=== PATIENT | female | born 1970 | race Caucasian/White ===

== ENCOUNTER 2017-05-31 21:42 | Emergency (ER) | END 2017-06-01 00:18 | disposition home or self-care (01) ==

== ENCOUNTER 2017-12-22 19:29 | Emergency (ER) | END 2017-12-22 22:00 | disposition home or self-care (01) ==

== ENCOUNTER 2018-05-16 19:11 | Emergency (ER) | END 2018-05-16 23:10 | disposition left against medical advice (07) ==

== ENCOUNTER 2018-09-29 19:40 | Emergency (ER) | payer OTHER ==
[~2018-09-29] VITALS: Ht 157.5 cm; Wt 69.8 kg
[~2018-09-29 19:40] MED LIST: ACET500C5 PO; BUTA1CAP39 PO; CLIN300C10 PO; HYDR-3498 PO; HYDR-4011 PO; MECL-77 PO; NAPR-985 PO; SIMV10TA PO
[2018-09-29 19:49] VITALS: Ht 157.5 cm; Wt 69.8 kg
[2018-09-29] MEDS ORDERED: KETOROLAC 15 MG INJ IV STA (21:35)
[2018-09-29] MEDS ORDERED: SOD CHLORIDE 0.9% 1,000 ML IV STA (21:35)
[2018-09-29] MEDS ORDERED: ONDANSETRON 4 MG INJ IV STA (21:35)
--- NOTE | 2018-09-29 21:40 | ERD ---
ER Documentation Chief Complaint Chief Complaint C/O POSTERIOR GARZA, PALPITATIONS AND NAUSEA SINCE 1700 HPI 48-year-old woman complaining of posterior scalp pain and burning with palpitations beginning a few hours prior to arrival. She has sharp nonexertional nonradiating chest pain and complains of stress and anxiety as well, symptoms began while at a alliance party in her house. She states she has had similar episodes in the past usually associated with anxiety. She denies depression, no suicidal homicidal ideation, no blurry vision, no slurred speech, no weakness in her arms or legs ROS All systems reviewed and are negative except as per history of present illness. Medications Home Meds Active Scripts Clindamycin Hcl* (Clindamycin Hcl*) 300 Mg Capsule, 300 MG PO TID for 10 Days, CAP Prov:EMERSON SULLIVAN NP 12/22/17 Hydrocodone/Acetaminophen (Wittman 5-325 Tablet) 1 Each Tablet, 1 TAB PO Q6H PRN for SEVERE PAIN LEVEL 7-10, #10 TAB Prov:EMERSON SULLIVAN NP 12/22/17 Acetaminophen* (Tylophen*) 500 Mg Capsule, 1 CAP PO Q6H PRN for PAIN AND OR ELEVATED TEMP, #20 CAP Prov:CAMERON MITCHELL PA-C 05/31/17 Clindamycin Hcl* (Clindamycin Hcl*) 300 Mg Capsule, 300 MG PO TID for 10 Days, CAP Prov:EMERSON SULLIVAN NP 04/28/16 Meclizine Hcl* (Meclizine Hcl*) 25 Mg Tablet, 25 MG PO Q8H PRN for DIZZINESS, #20 TAB Prov:EMERSON SULLIVAN NP 02/03/16 Hsewgmbnabxuo-Ctcrtrxlzf-Scggqhez-Codeine* (Fioricet w/ Codeine*) [id number] Capsule, 1 CAP PO Q6H PRN for PAIN LEVEL 1-5, #20 CAP Prov:EMERSON SULLIVAN NP 02/03/16 Naproxen* (Naprosyn*) 500 Mg Tablet, 500 MG PO BID PRN for PAIN AND/OR INFLAMMATION, #30 TAB Prov:KELLY PEDERSON PA-C 11/19/15 Hydrocodone Bit-Acetaminophen* (Wittman*) 5-325 Mg Tab, 1 TAB PO Q6 PRN for PAIN, #7 TAB Prov:KELLY PEDERSON PA-C 11/19/15 Clindamycin Hcl* (Clindamycin Hcl*) 300 Mg Capsule, 450 MG PO BID for 10 Days, CAP Prov:KELLY PEDERSON PA-C 11/19/15 Reported Medications Simvastatin* (Zocor*) 10 Mg Tablet, 1 TAB PO DAILY 02/21/12 Allergies Allergies: Coded Allergies: Penicillins (Verified Allergy, Unknown, 05/31/17) aspirin (Verified Allergy, Unknown, 05/31/17) PMhx/Soc Anxiety, hypertension History of Surgery: Yes (c/section x2, cholecystectomy, nasal polyps) Anesthesia Reaction: No Hx Neurological Disorder: No Hx Respiratory Disorders: No Hx Cardiac Disorders: Yes (dyslipidemia) Hx Psychiatric Problems: No Hx Miscellaneous Medical Probl: Yes (anxiety) Hx Alcohol Use: No Hx Substance Use: No Hx Tobacco Use: No Smoking Status: Never smoker FmHx Family History: No diabetes Physical Exam Vitals Vital Signs Date Temp Pulse Resp B/P (MAP) Pulse Ox O2 O2 Flow FiO2 Time Delivery Rate 09/29/18 98.7 67 19 130/83 100 Room Air 23:16 (99) 09/29/18 98.7 93 19 182/90 99 19:49 (120) Physical Exam GENERAL: Well-developed, well-nourished, hydrated, appears anxious, afebrile NEURO: Alert and oriented 3, cranial nerves II through XII intact bilaterally, pupils equal round reactive to light, no focal deficits or facial asymmetry, sensation intact distally Strength 5/5 in upper and lower extremities bi laterally CARDIAC: Regular rate and rhythm, no murmurs rubs or gallops LUNGS: Clear bilaterally no wheezing crackles or stridor ABDOMEN: Soft nontender, no guarding, no rigidity, no rebound, no psoas sign no obturator sign. Normoactive bowel sounds EXTREMITIES: No clubbing cyanosis or edema, calves are bilaterally symmetrical, no Homans sign, no popliteal cord sign. Distal pulses equal and bilateral PSYCH: Anxious Result Diagram: 09/29/18220309/29/182203 Results 24 hrs Laboratory Tests Test 09/29/18 22:04 5/2/19 23:00 White Blood Count 8.5 10^3/ul Red Blood Count 4.73 10^6/ul Hemoglobin 14.0 g/dl Hematocrit 42.4 % Mean Corpuscular Volume 89.6 fl Mean Corpuscular Hemoglobin 29.6 pg Mean Corpuscular Hemoglobin Concent 33.0 g/dl Red Cell Distribution Width 11.5 % Platelet Count 282 10^3/UL Mean Platelet Volume 9.1 fl Immature Granulocytes % 0.200 % Neutrophils % 75.5 % Lymphocytes % 18.2 % Monocytes % 5.3 % Eosinophils % 0.2 % Basophils % 0.6 % Nucleated Red Blood Cells % 0.0 /100WBC Immature Granulocytes # 0.020 10^3/ul Neutrophils # 6.4 10^3/ul Lymphocytes # 1.5 10^3/ul Monocytes # 0.5 10^3/ul Eosinophils # 0.0 10^3/ul Basophils # 0.1 10^3/ul Nucleated Red Blood Cells # 0.0 10^3/ul Sodium Level 140 mmol/L Potassium Level 4.0 mmol/L Chloride Level 108 mmol/L Carbon Dioxide Level 23 mmol/L Anion Gap 9 Blood Urea Nitrogen 14 mg/dl Creatinine 0.79 mg/dl Est Glomerular Filtrat Rate mL/min > 60 mL/min Glucose Level 120 mg/dl Calcium Level 9.7 mg/dl Total Bilirubin 0.2 mg/dl Direct Bilirubin 0.00 mg/dl Indirect Bilirubin 0.2 mg/dl Aspartate Amino Transf (AST/SGOT) 36 IU/L Alanine Aminotransferase (ALT/SGPT) 34 IU/L Alkaline Phosphatase 104 IU/L Troponin I < 0.012 ng/ml Total Protein 8.3 g/dl Albumin 4.4 g/dl Globulin 3.90 g/dl Albumin/Globulin Ratio 1.12 Lipase 137 U/L Urine Color STRAW Urine Clarity CLEAR Urine pH 9.0 Urine Specific Casey 1.011 Urine Ketones NEGATIVE mg/dL Urine Nitrite NEGATIVE mg/dL Urine Bilirubin NEGATIVE mg/dL Urine Urobilinogen NEGATIVE mg/dL Urine Leukocyte Esterase 2+ Lion/ul Urine Microscopic RBC 3 /HPF Urine Microscopic WBC 12 /HPF Urine Squamous Epithelial Cells MODERATE /HPF Urine Bacteria FEW /HPF Urine Hemoglobin 1+ mg/dL Urine Glucose NEGATIVE mg/dL Urine Total Protein NEGATIVE mg/dl Current Medications Medications Dose Sig/Erica Start Time Status Last (Trade) Ordered Route PRN Stop Time Admin Dose Reason Admin Sodium 1,000 ml @ Q1H STAT 09/29/18 DC 09/29/18 Chloride 1,000 mls/hr IV 21:35 09/29/18 22:28 22:34 Ondansetron 4 mg ONCE STAT 09/29/18 DC 09/29/18 HCl (Zofran IV 21:35 09/29/18 22:28 Inj) 21:37 Ketorolac 15 mg ONCE STAT 09/29/18 DC 09/29/18 Tromethamine IV 21:35 09/29/18 22:28 (Toradol) 21:37 Lorazepam 0.5 mg ONCE ONCE 09/29/18 DC 09/29/18 (Ativan) PO 22:00 09/29/18 22:28 22:01 Procedures/MDM IV line was established patient was placed on cardiac surgeon rhythm strip revealed a sinus rhythm at about 80 bpm with upright P and T waves. Patient was afebrile Chest X-ray 1V Interpreted by me: Soft Tissue: No acute abnormalities Bones: No acute abnormalities Mediastinum/Cardiac Silhouette/Lungs: No acute abnormalities EKG performed, read by me: 83 bpm, normal sinus rhythm, normal axis, no acute ST segment changes, narrow QRS complex, with good R-wave progression in precordial leads. I administered 1 L normal saline IV, Zofran 4 mg IV, Toradol 15 mg IV, lorazepam 0.5 mg p.o. x1 CBC and electrolytes are normal, liver function tests were normal, troponin was negative, urinalysis positive for infection. I called in a prescription for her, cephalexin x5 days Differential diagnoses considered, included but not limited to acute coronary syndrome, pulmonary embolism, aortic dissection, abdominal aortic aneurysm, sepsis, stroke, meningitis, encephalitis, pneumonia, appendicitis, cholecystitis, bowel obstruction, pyelonephritis, nephrolithiasis, cystitis, as well as metabolic, hematologic, and electrolyte abnormalities. As well as abscess, cellulitis, fractures, and dislocations. Patient feels much better at this time, and vital signs are normal, symptoms have improved. I did give strict instructions to return to the ED if symptoms continue or worsen, patient will otherwise follow-up with primary care physician. Patient understood instructions and agreed to plan. Disclaimer: Inadvertent spelling and grammatical errors are likely due to EHR/dictation software use and do not reflect on the overall quality of patient care. Also, please note that the electronic time recorded on this note does not necessarily reflect the actual time of the patient encounter. Departure Diagnosis: Primary Impression: Acute anxiety Additional Impressions: Palpitations Acute UTI Condition: Good EDWINA SWARTZ MD September 29, 2018 21:39
[2018-09-29] MEDS ORDERED: LORAZEPAM 0.5 MG TAB PO ONE (22:00)
[2018-09-29 23:16] VITALS: BP 130/83; PULSE 67; RESP 19
== END 2018-09-29 23:27 | disposition home or self-care (01) ==
LOC: E/R 19:40
DX: F41.9 Anxiety disorder, unspecified (principal); N39.0 Urinary tract infection, site not specified
CPT/HCPCS: 36415; 71045; 80053; 81001; 83690; 84484; 85025; 93005; 96374; 96375; J1885; J2405; J7030; Z7502; Z7610

== ENCOUNTER → 2018-12-11 | Emergency (ER) | payer OTHER ==
[~2018-12-11] VITALS: Ht 154.9 cm; Wt 78.0 kg
[~2018-12-11] MED LIST changes: +ACET325T33 PO; +HYDR-3980 PO; +KETOROLAC 30 MG INJ IM STA
[2018-12-11 14:17] VITALS: BP 157/88; PULSE 88; RESP 18; Ht 154.9 cm; Wt 78.0 kg
--- NOTE | 2018-12-11 14:49 | ERD ---
ER Documentation Chief Complaint Chief Complaint RIGHT TOOTH ACHE HPI [id number] presenting to the ED for tooth pain on the left side of her jaw x3 days. Is in [place] and was taking Toradol which was helping with the pain. Patient has an allergy to aspirin and penicillin. Patient states that she has had this dental problem for a while but the last 3 days is been causing a lot of pain. Patient denies fever chills nausea vomiting increase head pain dizziness loss of consciousness. Patient denies sore throat. Patient denies any difficult swallowing liquids or solids ROS All systems reviewed and are negative except as per history of present illness. Medications Home Meds Active Scripts Acetaminophen* (Tylenol*) 325 Mg Tablet, 2 TAB PO Q6 PRN for PAIN AND OR ELEVATED TEMP, #20 TAB Prov:STACIE ARROYO PA-C 12/11/18 Clindamycin Hcl* (Clindamycin Hcl*) 300 Mg Capsule, 450 MG PO TID for 7 Days, CAP Prov:STACIE ARROYO PA-C 12/11/18 Clindamycin Hcl* (Clindamycin Hcl*) 300 Mg Capsule, 300 MG PO TID for 10 Days, CAP Prov:EMERSON SULLIVAN NP 12/22/17 Hydrocodone/Acetaminophen (Yulan 5-325 Tablet) 1 Each Tablet, 1 TAB PO Q6H PRN for SEVERE PAIN LEVEL 7-10, #10 TAB Prov:EMERSON SULLIVAN NP 12/22/17 Acetaminophen* (Tylophen*) 500 Mg Capsule, 1 CAP PO Q6H PRN for PAIN AND OR ELEVATED TEMP, #20 CAP Prov:CAMERON MITCHELL PA-C 05/31/17 Clindamycin Hcl* (Clindamycin Hcl*) 300 Mg Capsule, 300 MG PO TID for 10 Days, CAP Prov:EMERSON SULLIVAN NP 04/28/16 Meclizine Hcl* (Meclizine Hcl*) 25 Mg Tablet, 25 MG PO Q8H PRN for DIZZINESS, #20 TAB Prov:EMERSON SULLIVAN AGING ROOM HAND 02/03/16 Cvbbrahjexkyn-Ltrzizhbwz-Jnuuqkmx-Codeine* (Fioricet w/ Codeine*) [id number] Capsule, 1 CAP PO Q6H PRN for PAIN LEVEL 1-5, #20 CAP Prov:EMERSON SULLIVAN STELLA MarleneHuy AGING ROOM HAND 02/03/16 Naproxen* (Naprosyn*) 500 Mg Tablet, 500 MG PO BID PRN for PAIN AND/OR INFLAMMATION, #30 TAB Prov:KELLY PEDERSON PA-C 11/19/15 Hydrocodone Bit-Acetaminophen* (Yulan*) 5-325 Mg Tab, 1 TAB PO Q6 PRN for PAIN, #7 TAB Prov:KELLY PEDERSON PA-C 11/19/15 Clindamycin Hcl* (Clindamycin Hcl*) 300 Mg Capsule, 450 MG PO BID for 10 Days, CAP Prov:KELLY PEDERSON PA-C 11/19/15 Reported Medications Simvastatin* (Zocor*) 10 Mg Tablet, 1 TAB PO DAILY 02/21/12 Allergies Allergies: Coded Allergies: Penicillins (Verified Allergy, Unknown, 05/31/17) aspirin (Verified Allergy, Unknown, 05/31/17) PMhx/Soc History of Surgery: Yes (c/section x2, cholecystectomy, nasal polyps) Anesthesia Reaction: No Hx Neurological Disorder: No Hx Respiratory Disorders: No Hx Cardiac Disorders: Yes (dyslipidemia) Hx Psychiatric Problems: Yes (Anxiety) Hx Miscellaneous Medical Probl: Yes (anxiety) Hx Alcohol Use: No Hx Substance Use: No Hx Tobacco Use: No Smoking Status: Never smoker Physical Exam Vitals Vital Signs Date Temp Pulse Resp B/P (MAP) Pulse Ox O2 O2 Flow FiO2 Time Delivery Rate 12/11/18 98.1 88 18 157/88 99 14:17 (111) Physical Exam Const: No acute distress Head: Atraumatic Eyes: Normal Conjunctiva ENT: Patient has 2 dental caries left lower mandible Neck: Full range of motion. No meningismus. Resp: Clear to auscultation bilaterally Cardio: Regular rate and rhythm, no murmurs Results 24 hrs Laboratory Tests Test 12/11/18 14:44 POC Beta HCG, Qualitative NEGATIVE Current Medications Medications Dose Sig/Erica Start Time Status Last (Trade) Ordered Route PRN Stop Time Admin Dose Reason Admin Ketorolac 30 mg ONCE STAT 12/11/18 DC 12/11/18 Tromethamine IM 14:33 14:47 (Toradol) 12/11/18 14:34 Procedures/MDM Medications given in ER: Toradol Patient tolerated medication well with no adverse reactions. Patient reported improvement in pain. Medical decision makin-year-old female presented to ED for tooth pain x3 days. Patient states she has a history of dental infections and that she needs to see a dentist. Patient denies any trauma or aggravating factor. Patient states that the pain started 3 days ago when she was in [place] and that she is been taking sublingual Toradol for pain which has been helping. Physical exam showed 2 dental caries in the left lower mandible. Advised the patient that she is going to need to see a dentist but today we are going to treat her for pain and prophylactic with antibiotics. Patient is afebrile and vitals have remained within normal limits. At this time I have low suspicion for epiglottitis, strep pharyngitis, peritonsillar abscess, retropharyngeal abscess, Raymond angina, tooth fracture, bleeding dental socket, periodontal abscess, ulcerative gingivitis, dental caries, dental trauma. Patient was advised if symptoms worsen return to ER immediately otherwise she needs to follow-up with her primary care provider regarding this visit that she will need to get into a dentist as soon as possible. Patient is agreement treatment plan had no further questions upon discharge Prescription for home: Clindamycin Acetaminophen I have discussed with the patient proper use and common side effects to expert with the medication . I advised the patient/family to speak with the pha rmacist dispensing the medication to be advised of any potential drug interactions with other medication or supplements they may be taking. Discharge: At this time, patient is stable for discharge and outpatient management. I have instructed the patient to follow-up with his\her primary care physician in 1 to 2 days. I have discussed with the patient the possibility of needing to see a specialist for further work-up and imaging studies if symptoms persist. I have instructed the patient to promptly return to the ER for any new or worsening symptoms including increased pain, fever, nausea, vomiting, weakness or LOC. The patient and\or family expressed understanding of and agreement with this plan. All questions were answered. Home care instructions were provided. Disclaimer: Inadvertent spelling and grammatical errors are likely due to EHR\dictation software use and do not reflect on the overall quality of patient care. Also, please note that the electronic time recorded on the note does not necessarily reflect the actual time of the patient encounter. Departure Diagnosis: Primary Impression: Toothache Additional Impression: Dental caries Condition: Stable Patient Instructions: Dental Pain Referrals: [facility] YOU HAVE RECEIVED A MEDICAL SCREENING EXAM AND THE RESULTS INDICATE THAT YOU DO NOT HAVE A CONDITION THAT REQUIRES URGENT TREATMENT IN THE EMERGENCY DEPARTMENT. FURTHER EVALUATION AND TREATMENT OF YOUR CONDITION CAN WAIT UNTIL YOU ARE SEEN IN YOUR DOCTORS OFFICE WITHIN THE NEXT 1-2 DAYS. IT IS YOUR RESPONSIBILITY TO MAKE AN APPOINTMENT FOR FOLOW-UP CARE. IF YOU HAVE A PRIMARY DOCTOR --you should call your primary doctor and schedule an appointment IF YOU DO NOT HAVE A PRIMARY DOCTOR YOU CAN CALL OUR PHYSICIAN REFERRAL HOTLINE AT IF YOU CAN NOT AFFORD TO SEE A PHYSICIAN YOU CAN CHOSE FROM THE FOLLOWING [facility] [address] [facility] [address] [facility] [address] [facility] [address] [facility] [address] [facility] [facility] [address] [facility] YOU HAVE RECEIVED A MEDICAL SCREENING EXAM AND THE RESULTS INDICATE THAT YOU DO NOT HAVE A CONDITION THAT REQUIRES URGENT TREATMENT IN THE EMERGENCY DEPARTMENT. FURTHER EVALUATION AND TREATMENT OF YOUR CONDITION CAN WAIT UNTIL YOU ARE SEEN IN YOUR DOCTORS OFFICE WITHIN THE NEXT 1-2 DAYS. IT IS YOUR RESPONSIBILITY TO MAKE AN APPOINTMENT FOR FOLOW-UP CARE. IF YOU HAVE A PRIMARY DOCTOR --you should call your primary doctor and schedule and appointment IF YOU DO NOT HAVE A PRIMARY DOCTOR YOU CAN CALL OUR PHYSICIAN REFERRAL HOTLINE AT . IF YOU CAN NOT AFFORD TO SEE A PHYSICIAN YOU CAN CHOSE FROM THE FOLLOWING [facility] INSTITUTIONS: [facility] [address] [place] [address] [facility] [address] [place] [address] [facility] [address] [place] [address] Additional Instructions: Call your primary care doctor TOMORROW for an appointment during the next 1-2 days.See the doctor sooner or return here if your condition worsens before your appointment time. Call your dentist and get an appointment as soon as possible. STACIE ARROYO PA-C Dec 11, 2018 14:49
== END | disposition home or self-care (01) ==
LOC: FTE 14:14
DX: K08.89 Other specified disorders of teeth and supporting structures (principal); K02.9 Dental caries, unspecified
CPT/HCPCS: 81025; 96372; J1885; Z7502

== ENCOUNTER 2018-12-12 15:58 | Emergency (ER) | payer OTHER ==
[~2018-12-12] VITALS: Ht 152.4 cm; Wt 69.0 kg
[~2018-12-12 15:58] MED LIST changes: -HYDR-3980 PO; -KETOROLAC 30 MG INJ IM STA
[2018-12-12 16:16] VITALS: BP 163/100; PULSE 100; RESP 17; Ht 152.4 cm; Wt 69.0 kg
[2018-12-12] MEDS ORDERED: ONDANSETRON (ODT) 4 MG TAB ODT STA (17:32)
[2018-12-12] MEDS ORDERED: HYDR-3980 PO (17:32)
[2018-12-12] MEDS ORDERED: HYDROCODONE/APAP (10/325) TAB PO ONE (18:00)
--- NOTE | 2018-12-12 19:48 | ERD ---
ER Documentation Chief Complaint Chief Complaint TOOTHACHE, MILD SWELLING ON LEFT JAW HPI Patient is a 48-year-old female with no medical problems who presents with toothache. She has had 4 days of toothache and left-sided jaw swelling. She is on clindamycin and was given Tylenol for pain. She says that she needs something stronger for pain. Upon review of old medical records the patient has multiple visits to the ER for various complaints including previous visits for dental disease. ROS All systems reviewed and are negative except as per history of present illness. Medications Home Meds Active Scripts Hydrocodone/Acetaminophen (Gregory 10-325 Tablet) 1 Each Tablet, 1 TAB PO Q6H PRN for PAIN, #7 TAB Prov:RYLEY CAMP MD 12/12/18 Acetaminophen* (Tylenol*) 325 Mg Tablet, 2 TAB PO Q6 PRN for PAIN AND OR ELEVATED TEMP, #20 TAB Prov:STACIE ARROYO PA-C 12/11/18 Clindamycin Hcl* (Clindamycin Hcl*) 300 Mg Capsule, 450 MG PO TID for 7 Days, CAP Prov:STACIE ARROYO PA-C 12/11/18 Clindamycin Hcl* (Clindamycin Hcl*) 300 Mg Capsule, 300 MG PO TID for 10 Days, CAP Prov:EMERSON SULLIVAN NP 12/22/17 Hydrocodone/Acetaminophen (Gregory 5-325 Tablet) 1 Each Tablet, 1 TAB PO Q6H PRN for SEVERE PAIN LEVEL 7-10, #10 TAB Prov:EMERSON SULLIVAN NP 12/22/17 Acetaminophen* (Tylophen*) 500 Mg Capsule, 1 CAP PO Q6H PRN for PAIN AND OR ELEVATED TEMP, #20 CAP Prov:CAMERON MITCHELL PA-C 05/31/17 Clindamycin Hcl* (Clindamycin Hcl*) 300 Mg Capsule, 300 MG PO TID for 10 Days, CAP Prov:EMERSON SULLIVAN NP 04/28/16 Meclizine Hcl* (Meclizine Hcl*) 25 Mg Tablet, 25 MG PO Q8H PRN for DIZZINESS, #20 TAB Prov:EMERSON SULLIVAN NP 02/03/16 Qyvnicqlucljf-Mjpsfilavo-Uijqitfx-Codeine* (Fioricet w/ Codeine*) [id number] Capsule, 1 CAP PO Q6H PRN for PAIN LEVEL 1-5, #20 CAP Prov:EMERSON SULLIVAN NP 02/03/16 Naproxen* (Naprosyn*) 500 Mg Tablet, 500 MG PO BID PRN for PAIN AND/OR INFLAMMATION, #30 TAB Prov:KELLY PEDERSON PA-C 11/19/15 Hydrocodone Bit-Acetaminophen* (Gregory*) 5-325 Mg Tab, 1 TAB PO Q6 PRN for PAIN, #7 TAB Prov:KELLY PEDERSON PA-C 11/19/15 Clindamycin Hcl* (Clindamycin Hcl*) 300 Mg Capsule, 450 MG PO BID for 10 Days, CAP Prov:KELLY PEDERSON PA-C 11/19/15 Reported Medications Simvastatin* (Zocor*) 10 Mg Tablet, 1 TAB PO DAILY 02/21/12 Allergies Allergies: Coded Allergies: Penicillins (Verified Allergy, Unknown, 05/31/17) aspirin (Verified Allergy, Unknown, 05/31/17) PMhx/Soc History of Surgery: Yes (c/section x2, cholecystectomy, nasal polyps) Anesthesia Reaction: No Hx Neurological Disorder: No Hx Respiratory Disorders: No Hx Cardiac Disorders: Yes (dyslipidemia) Hx Psychiatric Problems: Yes (Anxiety) Hx Miscellaneous Medical Probl: Yes (anxiety) Hx Alcohol Use: No Hx Substance Use: No Hx Tobacco Use: No Smoking Status: Never smoker FmHx Family History: diabetes Physical Exam Vitals Vital Signs Date Temp Pulse Resp B/P (MAP) Pulse Ox O2 O2 Flow FiO2 Time Delivery Rate 12/12/18 99.6 100 17 163/100 97 16:16 (121) Physical Exam Const: Moderate distress Head: Atraumatic Eyes: Normal Conjunctiva ENT: Swelling over the left mandible and poor dentition diffusely with likely dental abscess Neck: Full range of motion. No meningismus. Resp: Clear to auscultation bilaterally Cardio: Regular rate and rhythm, no murmurs Abd: Soft, non tender, non distended. Normal bowel sounds Skin: No petechiae or rashes Back: No midline or flank tenderness Ext: No cyanosis, or edema Neur: Awake and alert Psych: Normal Mood and Affect Results 24 hrs Current Medications Medications Dose Sig/Erica Start Time Status Last (Trade) Ordered Route PRN Stop Time Admin Dose Reason Admin 1 tab ONCE ONCE 12/12/18 DC 12/12/18 Acetaminophen PO 18:00 17:37 / 12/12/18 18:00 Hydrocodone Bitart (Gregory (10/325)) Ondansetron 4 mg ONCE STAT 12/12/18 DC 12/12/18 HCl (Zofran ODT 17:32 17:36 Odt) 12/12/18 17:33 Procedures/MDM Patient is a 48-year-old female presents with left sided jaw pain and facial swelling. I believe she has a dental abscess. She is on clindamycin which is an appropriate antibiotic. The patient will be discharged with a prescription for Gregory. She was instructed however that she needs a follow-up with a dentist so that this tooth can be pulled. She can return for any worsening symptoms. I doubt sepsis and I do not believe patient requires further work-up or admission in the hospital at this time. Departure Diagnosis: Primary Impression: Dental abscess Additional Impression: Tooth disease Condition: Fair Patient Instructions: Tooth Abscess Referrals: [facility] D[facility] ([facility] walk in clinic) Additional Instructions: Specialist:Usted tiene porter condicin mdica que requiere que marquis a un especialista dentro de los prximos 1-2 reina.POR FAVOR,CON [place] SEGUIMIENTO DE PRIMARIA PHSICIAN refferal. SI USTED NO TIENE UN MDICO GENERAL Y / O USTED NO PUEDE PAGAR santy a un mdico,los siguientes trujillo RECURSOS sido suministrado a usted. ES [place] RESPONSABILIDAD PARA SER VISTOS POR EL ESPECIALISTA: YRLEY CAMP MD Dec 12, 2018 19:48
== END 2018-12-12 17:47 | disposition home or self-care (01) ==
LOC: FTE 15:58
DX: K04.7 Periapical abscess without sinus (principal); K08.9 Disorder of teeth and supporting structures, unspecified
CPT/HCPCS: Z7610 ×2; 99283